=== PATIENT | female | born 1945 | race Caucasian/White ===

== ENCOUNTER 2018-10-01 01:15 | Emergency (ER) | payer BC, MEDICARE ==
[2018-10-01] MEDS ORDERED: Sulfamethoxazole/Trimethoprim 800-160 MG Tab ONE (02:00)
--- NOTE | 2018-10-01 08:51 | ER ---
HISTORY OF PRESENT ILLNESS: A 72-year-old lady here with complaints of urinary frequency for the last few days. She thinks it may have started over a week ago. She is not having any pain with urination or has not noticed any blood with urination. The patient has not been running a fever. She does have history of UTIs and feels this was an infection developing. OBJECTIVE: GENERAL APPEARANCE: The patient is awake and alert. No obvious distress. VITAL SIGNS: Reviewed. She is afebrile and normotensive. ABDOMEN: Soft and nontender. SKIN: Warm and dry. Bowel sounds are present. LAB AND X-RAY: UA shows 5 to 10 wbc's and a small amount of leukocytes, otherwise it is clear and yellow in appearance. DIAGNOSIS: Urinary frequency with just subtle changes on the UA. TREATMENT PLAN: I had a discussion with the patient about treating versus not treating. The patient states she is up here for the weekend and she is worried that her symptoms will get worse. Therefore, we will put her on Bactrim DS 1 tablet b.i.d. for 3 days, and we will order a urine culture on this patient. She is to push fluids and followup is otherwise p.r.n. CRS/MODL /[id number]
== END 2018-10-01 02:05 | disposition home or self-care (01) ==
LOC: LB.ED 01:15
DX: R35.0 Frequency of micturition (principal)
CPT/HCPCS: 81001; 87086; 99283; A9270